=== PATIENT | female | born 1990 | race Caucasian/White ===

== ENCOUNTER 2023-04-14 10:15 | Emergency (ER) | payer SELFPAY ==
[~2023-04-14] VITALS: Ht 154.9 cm; Wt 52.2 kg
[2023-04-14 11:52] LABS: BASOPHILS ABSOLUTE AUTO 0.05 K/mm3 (0.00-0.23); BASOPHILS PERCENT AUTO 1 % (0-2); EOSINOPHILS ABSOLUTE AUTO 0.03 K/mm3 (0.00-0.68); EOSINOPHILS PERCENT AUTO 0 % (0-6); Hematocrit 40.3 % (33.0-51.0); Hemoglobin 13.9 g/dL (11.5-16.0); IMMATURE GRAN ABSOLUTE AUTO 0.03 K/mm3 (0.00-0.10); IMMATURE GRAN PERCENT AUTO 0 % (0-1); LYMPHOCYTES ABSOLUTE AUTO 1.38 K/mm3 (0.84-5.20); LYMPHOCYTES PERCENT AUTO 21 % (21-46); MONOCYTES ABSOLUTE AUTO 0.46 K/mm3 (0.16-1.47); MONOCYTES PERCENT AUTO 7 % (4-13); Mean Corpuscular HGB 29.3 pg (26.0-34.0); Mean Corpuscular HGB Conc 34.5 g/dL (31.5-36.5); Mean Corpuscular Volume 85 fL (80-100); Mean Platelet Volume 10.6 fL (9.1-12.4); NEUTROPHILS ABSOLUTE AUTO 4.72 K/mm3 (1.96-9.15); NEUTROPHILS PERCENT AUTO 71 % (41-73); Platelet Count 198 K/mm3 (150-400); RDW Coefficient Variation 12.4 % (11.7-14.2); RDW Standard Deviation 38.6 fL (35.1-46.3); Red Blood Cell Count 4.75 M/mm3 (3.80-5.20); White Blood Cell Count 6.67 K/mm3 (4.00-11.30)
[2023-04-14 12:11] LABS: Albumin/Globulin Ratio 1.1 (0.8-1.8); Bilirubin, Total 0.6 mg/dL (0.1-1.0); Bun/Creatinine Ratio 17.4 (12.0-20.0); Creatinine, Blood 0.58 mg/dL (0.40-1.00); Globulin, Blood 3.5 g/dL (2.2-4.0); Potassium, Blood 4.1 mmol/L (3.5-5.5); Total Protein, Blood 7.5 g/dL (6.4-8.2)
[2023-04-14 12:52] LABS: Source, Urine Clean Catch
[2023-04-14 12:55] LABS: Appearance, Urine Clear (Clear); Bilirubin, Urine Neg (Neg); Blood, Urine Neg (Neg); Color, Urine Yellow (P-Yellow); Glucose Qualitative, Urine Neg (Neg); Ketones, Urine Neg (Neg); Leukocyte Esterase, Urine Neg (Neg); Nitrite, Urine Neg (Neg); Protein, Urine Neg (Neg); Urobilinogen, Urine NORM (Normal)
[2023-04-14] MEDS ORDERED: Roxicodone5 MG PO (13:16)
[2023-04-14 13:45] VITALS: BP 118/85
== END 2023-04-14 13:46 | disposition home or self-care (01) ==
LOC: ER 10:15
PROVIDERS: Student in an Organized Health Care Education/Training Program
DX: N83.201 Unspecified ovarian cyst, right side (principal); Z88.0 Allergy status to penicillin
CPT/HCPCS: 76856; 80053; 81003; 84703; 85025; 96374; 96375; 96376; 99284-25; J1170; J1885; J2405

== ENCOUNTER 2024-06-28 10:27 | Emergency (ER) | payer OTHER ==
[~2024-06-28] VITALS: Ht 154.9 cm; Wt 53.5 kg
[~2024-06-28 10:27] MED LIST: HYDR1TAB94 PO; Roxicodone5 MG PO
[2024-06-28 10:40] VITALS: BP 143/90
[2024-06-28 10:54] LABS: Source, Urine Clean Catch
[2024-06-28 10:57] LABS: Appearance, Urine Hazy (Clear); Bilirubin, Urine Neg (Neg); Blood, Urine 5+ (Neg); Color, Urine Yellow (P-Yellow); Glucose Qualitative, Urine Neg (Neg); Ketones, Urine Neg (Neg); Leukocyte Esterase, Urine 2+ (Neg); Nitrite, Urine Neg (Neg); Protein, Urine 2+ (Neg); Urobilinogen, Urine NORM (Normal)
[2024-06-28 11:04] LABS: Squamous Epithelial Cells Many /hpf (Few)
[2024-06-28 11:06] LABS: Bacteria Many /hpf
== END 2024-06-28 12:04 | disposition home or self-care (01) ==
LOC: ER 10:27
PROVIDERS: Physician Assistant
DX: O03.9 Complete or unspecified spontaneous abortion without complication (principal); Z88.0 Allergy status to penicillin
CPT/HCPCS: 76801; 76817; 81001; 87086; 99284-25